=== PATIENT | female | born 1985 | race Caucasian/White ===

== ENCOUNTER 2017-12-27 02:11 | Emergency (ER) | payer BC, MEDICAID ==
[~2017-12-27] VITALS: Ht 157.5 cm; Wt 49.5 kg
[~2017-12-27 02:11] MED LIST: ALPR-304 PO; IBUP-1984 PO; NO HOME MEDS
[2017-12-27 02:12] VITALS: BP 121/63
[2017-12-27] MEDS ORDERED: SULF1TAB49 PO (02:25)
[2017-12-28] MEDS ORDERED: CEPH500C5 PO (02:53)
== END 2017-12-27 02:50 | disposition home or self-care (01) ==
LOC: ER 02:11
DX: L03.012 Cellulitis of left finger (principal); F17.200 Nicotine dependence, unspecified, uncomplicated; F12.10 Cannabis abuse, uncomplicated; Z79.899 Other long term (current) drug therapy
CPT/HCPCS: 99283

== ENCOUNTER 2017-12-28 01:21 | Emergency (ER) | payer BC, MEDICAID ==
[~2017-12-28] VITALS: Ht 157.5 cm; Wt 50.7 kg
[~2017-12-28 01:21] MED LIST changes: +SULF1TAB49 PO
[2017-12-28] MEDS ORDERED: LIDOcaine 1.5% w/epinephrine 1:200,000 5ml ampul IJ ONE (02:20)
[2017-12-28] MEDS ORDERED: CEPH500C5 PO (02:53)
[2017-12-28 03:04] VITALS: BP 110/72
== END 2017-12-28 03:06 | disposition home or self-care (01) ==
LOC: ER 01:21
DX: L03.012 Cellulitis of left finger (principal); F41.9 Anxiety disorder, unspecified; F12.10 Cannabis abuse, uncomplicated
CPT/HCPCS: 10060; 99283; A6266; J3490

== ENCOUNTER 2019-07-11 17:17 | Emergency (ER) | payer BC, MEDICAID ==
[~2019-07-11] VITALS: Ht 157.5 cm; Wt 46.0 kg
[~2019-07-11 17:17] MED LIST changes: -SULF1TAB49 PO
[2019-07-11 17:26] VITALS: BP 146/89
--- NOTE | 2019-07-11 17:30 | NUR ---
ELVIRA Turk, at bedside to take photos, , and Brittnee, from [facility] at bedside to talk with pt
[2019-07-11 18:53] LABS: URINE HCG NEGATIVE (NEG)
[2019-07-11] MEDS ORDERED: azithromycin 250mg tablet PO ONE (19:10)
[2019-07-11] MEDS ORDERED: CefTRIAXone 1000mg IM Kit (w/lidocaine diluent) IM ONE (19:10)
[2019-07-11] MEDS ORDERED: IBUP-1985 PO (22:17)
[2019-07-11] MEDS ORDERED: DOXY100C43 PO (22:25)
== END 2019-07-11 22:50 | disposition home or self-care (01) ==
LOC: ER 17:21 → EEVIPCON 17:21 → ER 22:50
DX: T74.21XA Adult sexual abuse, confirmed, initial encounter (principal); G47.30 Sleep apnea, unspecified; F41.9 Anxiety disorder, unspecified; F12.90 Cannabis use, unspecified, uncomplicated; Z88.0 Allergy status to penicillin; Z79.899 Other long term (current) drug therapy; Y92.89 Other specified places as the place of occurrence of the external cause
CPT/HCPCS: 81025; 99284

== ENCOUNTER → 2024-04-24 | Outpatient (CLI) | payer BC, MEDICAID ==
[~2024-04-24] VITALS: Ht 157.5 cm; Wt 52.2 kg
[~2024-04-24] MED LIST changes: +IBUP-1985 PO
[2024-04-24 08:07] VITALS: PULSE 86; RESP 16; O2SAT 99
[2024-04-24] MEDS: albuterol 2.5 MG/3 ML nebule NEB ONE (08:18)
[2024-04-24 08:28] VITALS: PULSE 74; RESP 16
== END | disposition home or self-care (01) ==
LOC: RT 07:40
PROVIDERS: ATTEND Student in an Organized Health Care Education/Training Program
DX: R94.2 Abnormal results of pulmonary function studies (principal); R06.02 Shortness of breath
CPT/HCPCS: 94060; 94760

== ENCOUNTER 2025-05-25 09:14 | Outpatient (CLI) | payer MEDICAID ==
--- NOTE | 2025-05-25 13:07 | RADIOLOGY REPORT ---
CLINICAL INFORMATION: Right shoulder pain. TECHNIQUE: Multisequence multiplanar MRI images of the right shoulder were obtained without contrast . COMPARISON: None FINDINGS: Acromioclavicular joint: There is mild acromioclavicular hypertrophy and mild edema. There is type 1 acromion. Small amount of fluid in the subacromial / subdeltoid bursa. Rotator cuff tendons: Mild tendinosis of the distal supraspinatus and infraspinatus tendons. Small fo cus of T2 hypointense signal along the bursal surface of the distal supraspinatus tendon near its ins ertion measuring up to 0.6 cm, may be seen with calcific tendinitis in the appropriate clinical setti ng. No tear identified in the supraspinatus or infraspinatus tendons. Subscapularis and teres minor t endons are intact. Biceps tendon: No significant tendinosis. No evidence of attrition or tear. Labrum: Possible mild fraying of the posterior superior labrum. Bones: No fracture or focal marrow contusion. Muscles: Normal muscle bulk. No atrophy. Other: Motion artifact limits evaluation. IMPRESSION: 1. Motion limited study. 2. Rotator cuff tendinosis without evidence of tear. Suspected calcification along the bursal surface of the distal supraspinatus tendon, may be seen with calcific tendinitis in the appropriate clinical setting. 3. Mild acromioclavicular hypertrophy with mild subacromial / subdeltoid bursitis. 4. Possible mild fraying of the posterior superior labrum.
== END 2025-05-25 23:59 | disposition home or self-care (01) ==
LOC: MRI02 09:14
PROVIDERS: ATTEND Student in an Organized Health Care Education/Training Program
DX: M75.101 Unspecified rotator cuff tear or rupture of right shoulder, not specified as traumatic (principal); M25.511 Pain in right shoulder; M89.311 Hypertrophy of bone, right shoulder; R60.0 Localized edema
CPT/HCPCS: 73221